=== PATIENT | female | born 2000 | race Caucasian/White ===

== ENCOUNTER → 2021-02-18 07:56 | Outpatient (CLI) | payer BC, SELFPAY ==
--- NOTE | ~2021-02-18 | US_ITS ---
US breast RT complete INDICATION: Right breast lump TECHNIQUE: Dedicated right breast ultrasound COMPARISON: No prior studies for comparison. FINDINGS: There are multiple cysts scattered throughout the right breast, largest at 2:00, 6 cm from the nipple in the area of palpable concern measuring 2.1 cm maximum dimension. No suspicious masses t o suggest malignancy. IMPRESSION: 1: Multiple benign right breast cyst. No sonographic evidence for malignancy. BI-RADS CATEGORY 2 - BENIGN FINDINGS Reviewed, dictated and finalized at location A. [employer]
== END ==
DX: N60.11 Diffuse cystic mastopathy of right breast (principal)
CPT/HCPCS: 76641

== ENCOUNTER 2021-08-25 15:55 | Emergency (ER) | payer BC, SELFPAY ==
[2021-08-25 16:06] VITALS: BP 144/80; PULSE 71; RESP 16; TEMP 36.6; O2SAT 100
--- NOTE | 2021-08-25 16:18 | ED.URI ---
HPI - URI/Sore Throat General Chief Complaint: Upper Respiratory Infection Stated Complaint: Sore Throat Time Seen by Provider: 08/25/21 16:18 History of Present Illness HPI Narrative: 21-year-old female presented for complaint of sore throat for about 3 days. Was seen at outside urgent care yesterday and was told her strep test was negative. She is requesting monotest. She had mono 03/2021. Endorses it takes longer to swallow and symptoms are worse at night. Rates pain 2/10. Denies headache, nausea, vomiting, fevers or chills. Related Data Allergies Allergy/AdvReac Type Severity Reaction Status Date / Time No Known Allergies Allergy Verified 08/25/21 16:31 Review of Systems Review of Systems: CONSTITUTIONAL: Denies body aches, fever, chills, or sweats. EYES: Denies visual changes, redness, or discharge. ENT: Denies rhinorrhea, congestion, or otalgia. CARDIOVASCULAR: Denies chest pain, palpitations, or edema. RESPIRATORY: Denies dyspnea. GASTROINTESTINAL: Denies abdominal pain, nausea, vomiting, or diarrhea. SKIN: Denies rash, itching, or wounds. MUSCULOSKELETAL: Denies back pain, joint pain, or myalgia. NEUROLOGIC: Denies headache Exam Narrative: GENERAL: Ill-appearing, no acute distress. EYES: conjunctivae clear ENT: Mucous membranes moist. TMs pearly valenzuela with normal light reflex bilaterally; no tragal tenderness. Oropharynx erythematous without lesions. Tonsils enlarged 2+and without exudate. No drooling, no hoarseness, no trismus, uvula midline. No tripod positioning, hot potato voice, or soft palate swelling. NECK: Supple. No lymphadenopathy CHEST: Clear to auscultation, breath sounds equal. No respiratory distress, speaks in full sentences. HEART: Regular rate and rhythm. No murmur heard. SKIN: Warm, dry, no rash. NEURO: Alert and oriented x3. Course Course Emergency Course: Patient is aware of diagnosis, understands and agrees to treatment plan. Anticipatory guidance given. Patient agrees to follow-up as directed and is aware of reasons to seek care at the emergency department. Portions of this record may have been created with voice recognition software Level of Care: Express Care Visit Vital Signs Vital signs: Vital Signs Temperature 97.8 F 08/25/21 16:06 Pulse Rate 71 08/25/21 16:06 Respiratory Rate 16 08/25/21 16:06 Blood Pressure 144/80 H 08/25/21 16:06 Pulse Oximetry 100 08/25/21 16:06 Oxygen Delivery Room Air 08/25/21 16:06 Temperature 97.8 F 08/25/21 16:06 Pulse Rate 71 08/25/21 16:06 Respiratory Rate 16 08/25/21 16:06 Blood Pressure 144/80 H 08/25/21 16:06 Pulse Oximetry 100 08/25/21 16:06 Oxygen Delivery Room Air 08/25/21 16:06 MDM - URI/Sore Throat MDM Narrative Medical decision making narrative: Dickey result reviewed with pt. Advise supportive treatments. Patient is appropriate for outpatient treatment and follow-up. Differential Diagnosis Differential diagnosis: Likely upper respiratory infection, viral infection and pharyngitis Discharge Plan Discharge Clinical Impression: Acute tonsillitis Qualifiers: Pharyngitis/tonsillitis etiology: unspecified etiology Qualified Code(s): J03.90 - Acute tonsillitis, unspecified Patient Disposition: Home, Self-Care Condition: Stable Instructions: Antibiotic Form, Tonsillitis (ED) Additional Instructions: Dickey test was negative today. if symptoms are due to a viral illness, it is not treated with antibiotics. Viral symptoms can be present for up to 10-14 days. Tylenol 1000mg every 8 hours as needed for pain/fever Soft foods, cool liquids, warm tea. Gargle with warm saltwater twice a day. Chloraseptic spray and throat lozenges as needed. Rest and stay hydrated. --Follow up with your PCP/ENT if symptoms are not improving, or sooner if symptoms are worsening. Go to the ER immediately if you cannot swallow your saliva, trouble breathing/wheezing, throat swelling, pain is persisten
== END 2021-08-25 16:47 | disposition home or self-care (01) ==
PROVIDERS: Emergency Provider Nurse Practitioner Family
DX: J03.90 Acute tonsillitis, unspecified (principal)
CPT/HCPCS: 36416; 86308; 99203; G0463